=== PATIENT | male | born 1980 | race Caucasian/White ===

== ENCOUNTER 2018-07-20 10:36 | Inpatient (IN) | payer MEDICAID, OTHER ==
[~2018-07-20] VITALS: Ht 180.3 cm; Wt 135.1 kg
[2018-07-20] MEDS ORDERED: aspirin 81mg tab.chew PO ONE (10:50)
[2018-07-20] MEDS ORDERED: niCARDipine/sod cl 20mg/200ml 200 ML IV ONE (10:50)
[2018-07-20 11:03] LABS: BASOPHILS % (AUTO) 0.3 % (0-1); EOSINOPHILS # (AUTO) 0.1 X10'3 (0-0.9); HEMATOCRIT 49.7 % (42.0-52.0); HEMOGLOBIN 16.2 g/dl (14.0-17.9); LYMPHOCYTES # (AUTO) 1.3 X10'3 (1.1-4.8); LYMPHOCYTES % (AUTO) 15.1 % (21-51); MEAN CORPUSCULAR HGB CONC 32.7 % (33.0-36.5); MEAN CORPUSCULAR VOLUME 85.7 FL (78-98); MEAN PLATELET VOLUME 7.4 FL (7.4-10.4); MONOCYTES # (AUTO) 0.4 X10'3 (0-0.9); MONOCYTES % (AUTO) 4.4 % (2-12); NEUTROPHILS # (AUTO) 6.8 X10'3 (1.8-7.7); NEUTROPHILS % (AUTO) 79.2 % (42-75); PLATELET COUNT 343 X10'3 (140-440); RED BLOOD COUNT 5.79 X10'6 (4.70-6.10); RED CELL DISTRIBUTION WIDTH 15.4 % (11.5-14.5); WHITE BLOOD COUNT 8.6 X10'3 (4.5-11.0)
[2018-07-20 11:12] LABS: PARTIAL THROMBOPLASTIN TIME 27 SECONDS (22-32); PROTHROMBIN TIME 10.2 SECONDS (9.0-12.0)
[2018-07-20 11:25] LABS: ALANINE AMINOTRANSFERASE 32 U/L (12-78); ALBUMIN 3.9 G/DL (3.4-5.0); ALBUMIN/GLOBULIN RATIO 0.8 (1.1-1.5); ALKALINE PHOSPHATASE 121 IU/L (46-116); ANION GAP 9 (8-16); ASPARTATE AMINO TRANSFERASE 11 U/L (10-37); BILIRUBIN,TOTAL 0.6 MG/DL (0.1-1.0); BLOOD UREA NITROGEN 6 MG/DL (7-18); BUN/CREATININE RATIO 5.5 (5.4-32.0); CALCIUM 9.3 MG/DL (8.5-10.1); CHLORIDE 103 MMOL/L (99-107); CREATININE 1.09 MG/DL (0.60-1.10); GLUCOSE 126 MG/DL (70-104); SODIUM 137 MMOL/L (135-145); TOTAL CARBON DIOXIDE 25.2 MMOL/L (24-32); TOTAL PROTEIN 8.7 G/DL (6.4-8.2); eGFR 76 ML/MIN
[2018-07-20] MEDS ORDERED: NO HOME MEDS (11:53)
[2018-07-20] MEDS ORDERED: nitroGLYCERIN-Tridil 50MG/D5W 250 ML IV PRN (11:58)
[2018-07-20] MEDS ORDERED: mag hydrox/Alum hydrox/simeth 30ml oral suspension PO PRN (13:25)
[2018-07-20] MEDS ORDERED: potassium Cl 40MEQ/NS 500ml 500 ML IV PRN ×2 (13:25)
[2018-07-20] MEDS ORDERED: magnesium 1gm/100ml D5W IVPB 100 ML IV PRN (13:25)
[2018-07-20] MEDS ORDERED: ondansetron/PF 4mg/2ml inj IV PRN (13:25)
[2018-07-20] MEDS ORDERED: magnesium hydroxide 30ml (MOM) UD suspension PO PRN (13:25)
[2018-07-20] MEDS: sodium chloride 0.45% 1,000 ML IV SCH (13:25)
[2018-07-20] MEDS ORDERED: acetaminophen 325mg tablet PO PRN (13:25)
[2018-07-20] MEDS ORDERED: magnesium 4gm in 100ml NS 100 ML IV PRN (13:25)
[2018-07-20] MEDS ORDERED: magnesium Cl slow-release 64mg tablet PO PRN (13:25)
[2018-07-20] MEDS ORDERED: morphine 2 MG/ML inj. syringe IV PRN ×2 (13:25)
[2018-07-20] MEDS: K and/or MAG REPLACEMENT MC SCH (13:25)
[2018-07-20] MEDS ORDERED: bisacodyl 10mg suppository rectal RC PRN (13:25)
[2018-07-20] MEDS ORDERED: potassium Cl 20 mEq SR tablet PO PRN ×2 (13:25)
[2018-07-20] MEDS ORDERED: LORazepam 2 mg/ml vial IV PRN (13:30)
[2018-07-20] MEDS ORDERED: LORazepam 1 MG tablet PO PRN (13:30)
[2018-07-20] MEDS ORDERED: nitroGLYCERIN-Tridil 50MG/D5W 250 ML IV SCH (13:30)
[2018-07-20 14:40] LABS: ETHANOL < 0.010 GM/DL (0.0-0.010)
[2018-07-20] MEDS ORDERED: heparin 10,000 units/1 ML INJ IV PRN (15:40)
[2018-07-20] MEDS ORDERED: heparin 10,000 units/1 ML INJ IV ONE (15:40)
[2018-07-20] MEDS: metoprolol tartrate 12.5mg (1/2 tablet) PO SCH ×2 (17:28→20:00)
[2018-07-20 18:30] LABS: PROTHROMBIN TIME 10.5 SECONDS (9.0-12.0)
[2018-07-20 19:00] VITALS: BP 137/95
[2018-07-20] MEDS: tirofiban 5mg in NS 100mL 100 ML IV SCH ×2 (20:00→21:23)
[2018-07-20] MEDS: docusate sod 100mg capsule PO SCH (20:00)
[2018-07-20 21:00] VITALS: BP 138/87
[2018-07-20 23:00] VITALS: BP 145/95
[2018-07-21] VITALS (16 sets, daily range): BP systolic 122–180; BP diastolic 66–120
[2018-07-21 02:16] LABS: ALANINE AMINOTRANSFERASE 30 U/L (12-78); ALBUMIN 3.2 G/DL (3.4-5.0); ALBUMIN/GLOBULIN RATIO 0.8 (1.1-1.5); ALKALINE PHOSPHATASE 102 IU/L (46-116); ANION GAP 7 (8-16); ASPARTATE AMINO TRANSFERASE 32 U/L (10-37); BASOPHILS % (AUTO) 0.3 % (0-1); BILIRUBIN,TOTAL 0.6 MG/DL (0.1-1.0); BLOOD UREA NITROGEN 9 MG/DL (7-18); CALCIUM 8.5 MG/DL (8.5-10.1); CHLORIDE 104 MMOL/L (99-107); CHOL/HDL RATIO 4.3 (0.00-4.99); CHOLESTEROL 125 MG/DL (0-200); EOSINOPHILS # (AUTO) 0.2 X10'3 (0-0.9); EOSINOPHILS % (AUTO) 1.8 % (0-6); GLUCOSE 101 MG/DL (70-104); HDL CHOLESTEROL 29 MG/DL (35-60); HEMATOCRIT 44.2 % (42.0-52.0); HEMOGLOBIN 14.6 g/dl (14.0-17.9); LDL CHOLESTEROL 80 MG/DL (50-100); LYMPHOCYTES # (AUTO) 2.6 X10'3 (1.1-4.8); LYMPHOCYTES % (AUTO) 24.3 % (21-51); MEAN CORPUSCULAR HEMOGLOBIN 28.5 PG (27.0-31.0); MEAN CORPUSCULAR HGB CONC 33.1 % (33.0-36.5); MEAN CORPUSCULAR VOLUME 86.1 FL (78-98); MEAN PLATELET VOLUME 7.7 FL (7.4-10.4); MONOCYTES # (AUTO) 0.7 X10'3 (0-0.9); MONOCYTES % (AUTO) 6.1 % (2-12); NEUTROPHILS # (AUTO) 7.3 X10'3 (1.8-7.7); NEUTROPHILS % (AUTO) 67.5 % (42-75); PHOSPHORUS 3.5 MG/DL (2.3-4.5); PLATELET COUNT 315 X10'3 (140-440); POTASSIUM 3.8 MMOL/L (3.5-5.1); RED BLOOD COUNT 5.13 X10'6 (4.70-6.10); RED CELL DISTRIBUTION WIDTH 15.5 % (11.5-14.5); SODIUM 138 MMOL/L (135-145); TOTAL CARBON DIOXIDE 27.4 MMOL/L (24-32); TOTAL PROTEIN 7.1 G/DL (6.4-8.2); TRIGLYCERIDES 133 MG/DL (20-135); WHITE BLOOD COUNT 10.9 X10'3 (4.5-11.0); eGFR > 90 ML/MIN
[2018-07-21] MEDS: sodium chloride 0.45% 1,000 ML IV SCH (03:43)
[2018-07-21] MEDS: tirofiban 5mg in NS 100mL 100 ML IV SCH ×2 (03:54→08:01)
[2018-07-21] MEDS ORDERED: folic acid inj. 2 MG, thiamine inj. 100 MG, MVI, adult No.4 with vit. K 10 ML in dextro... IV SCH ×4 (08:00)
[2018-07-21] MEDS: K and/or MAG REPLACEMENT MC SCH (08:00)
[2018-07-21] MEDS: aspirin 81mg tablet.DR PO SCH (08:13)
[2018-07-21] MEDS: metoprolol tartrate 12.5mg (1/2 tablet) PO SCH (08:13)
[2018-07-21] MEDS: docusate sod 100mg capsule PO SCH ×2 (08:13→20:08)
[2018-07-21] MEDS ORDERED: atorvastatin 20mg tablet PO SCH ×3 (08:20→21:00)
[2018-07-21] MEDS: thiamine 100mg tablet PO SCH (08:26)
[2018-07-21] MEDS: multivitamins, therapeutics tablet PO SCH (08:26)
[2018-07-21] MEDS: folic acid 1mg tablet PO SCH (08:27)
[2018-07-21 10:09] LABS: CLARITY,URINE CLEAR (Clear); COLOR,URINE YELLOW (Yellow); GLUCOSE, URINE NEGATIVE (Neg); KETONES,URINE NEGATIVE (Neg); LEUKOCYTE ESTERASE ,URINE NEGATIVE (Neg); NITRITES, URINE NEGATIVE (Neg); OCCULT BLOOD,URINE NEGATIVE (Neg); PH,URINE 7.5 (4.8-8.0); PROTEIN,URINE NEGATIVE (Neg); UROBILINOGEN,URINE 0.2 E.U/dL (0.2-1.0)
[2018-07-21 10:10] LABS: UA COLLECTION TYPE CLN CATCH MIDSTREAM
[2018-07-21] MEDS ORDERED: lidocaine 1%/epinephrine 1:100,000 injection 50ml vial ONE (10:10)
[2018-07-21] MEDS ORDERED: iohexol 350MG/ML 100ml bottle IV ONE (10:10)
[2018-07-21] MEDS ORDERED: midazolam 2 mg/2 ml injection ONE (10:29)
[2018-07-21] MEDS ORDERED: fentaNYL/PF 50MCG/1 ML 2ML syringe ONE (10:29)
[2018-07-21] MEDS ORDERED: tirofiban 5mg in NS 100mL 100 ML IV ONE (10:34)
[2018-07-21 10:37] LABS: URINE AMPHETAMINE SCREEN NEGATIVE (Neg); URINE BARBITUATE SCREEN NEGATIVE (Neg); URINE BENZODIAZEPINES SCREEN NEGATIVE (Neg); URINE CANNABINOID SCREEN POSITIVE (Neg); URINE COCAINE SCREEN NEGATIVE (Neg); URINE METHADONE SCREEN NEGATIVE (Neg); URINE OPIATE SCREEN NEGATIVE (Neg); URINE PHENCYCLIDINE SCREEN NEGATIVE (Neg)
[2018-07-21] MEDS ORDERED: verapamil 2.5 mg/ml inj IV ONE (10:37)
[2018-07-21] MEDS ORDERED: nitroGLYCERIN-Tridil 50MG/D5W 250 ML IV ONE (10:37)
[2018-07-21] MEDS ORDERED: heparin 1,000unit/ml 10ml vial 10 ML ONE ×2 (10:37→10:47)
[2018-07-21] MEDS ORDERED: iohexol 350 MG/ML 50ML vial IV ONE (10:53)
[2018-07-21] MEDS ORDERED: ticagrelor 90mg tablet ONE (11:07)
[2018-07-21] MEDS ORDERED: proCHLORperazine 10 MG/2 ml inj IV PRN (11:45)
[2018-07-21] MEDS ORDERED: aspirin 81mg tab.chew PO ONE (11:45)
[2018-07-21] MEDS ORDERED: OXAZEpam 15mg capsule PO PRN (11:45)
[2018-07-21] MEDS ORDERED: lisinopril 5mg tablet PO SCH (12:10)
[2018-07-21] MEDS ORDERED: carvedilol 6.25mg tablet PO SCH (20:00)
[2018-07-21] MEDS: ticagrelor 90mg tablet PO SCH (20:08)
[2018-07-21] MEDS ORDERED: lisinopril 10 MG tablet PO SCH (21:00)
[2018-07-21] MEDS ORDERED: losartan 50mg tablet PO SCH (21:00)
[2018-07-21] MEDS ORDERED: hydrALAZINE 20mg/ml inj. IV PRN (23:45)
[2018-07-22 03:00] VITALS: BP 153/92
[2018-07-22 07:00] VITALS: BP 146/87
[2018-07-22 07:10] LABS: BASOPHILS % (AUTO) 0.5 % (0-1); EOSINOPHILS # (AUTO) 0.1 X10'3 (0-0.9); EOSINOPHILS % (AUTO) 1.3 % (0-6); HEMATOCRIT 46.9 % (42.0-52.0); HEMOGLOBIN 14.8 g/dl (14.0-17.9); LYMPHOCYTES # (AUTO) 1.8 X10'3 (1.1-4.8); MEAN CORPUSCULAR HEMOGLOBIN 26.5 PG (27.0-31.0); MEAN CORPUSCULAR HGB CONC 31.5 % (33.0-36.5); MEAN CORPUSCULAR VOLUME 84.1 FL (78-98); MEAN PLATELET VOLUME 7.4 FL (7.4-10.4); MONOCYTES # (AUTO) 0.5 X10'3 (0-0.9); MONOCYTES % (AUTO) 5.3 % (2-12); NEUTROPHILS # (AUTO) 7.2 X10'3 (1.8-7.7); NEUTROPHILS % (AUTO) 73.9 % (42-75); PLATELET COUNT 329 X10'3 (140-440); RED BLOOD COUNT 5.58 X10'6 (4.70-6.10); WHITE BLOOD COUNT 9.7 X10'3 (4.5-11.0)
[2018-07-22] MEDS: aspirin 81mg tablet.DR PO SCH (07:31)
[2018-07-22] MEDS: ticagrelor 90mg tablet PO SCH (07:31)
[2018-07-22] MEDS: multivitamins, therapeutics tablet PO SCH (07:31)
[2018-07-22] MEDS: folic acid 1mg tablet PO SCH (07:31)
[2018-07-22] MEDS: thiamine 100mg tablet PO SCH (07:32)
[2018-07-22] MEDS: docusate sod 100mg capsule PO SCH (07:40)
[2018-07-22 07:49] LABS: ALANINE AMINOTRANSFERASE 33 U/L (12-78); ALBUMIN 3.4 G/DL (3.4-5.0); ALBUMIN/GLOBULIN RATIO 0.8 (1.1-1.5); ALKALINE PHOSPHATASE 115 IU/L (46-116); ANION GAP 11 (8-16); ASPARTATE AMINO TRANSFERASE 21 U/L (10-37); BILIRUBIN,TOTAL 0.8 MG/DL (0.1-1.0); BLOOD UREA NITROGEN 6 MG/DL (7-18); BUN/CREATININE RATIO 7.1 (5.4-32.0); CALCIUM 8.6 MG/DL (8.5-10.1); CHLORIDE 102 MMOL/L (99-107); CREATININE 0.84 MG/DL (0.60-1.10); GLUCOSE 93 MG/DL (70-104); MAGNESIUM 1.9 MG/DL (1.5-2.4); POTASSIUM 3.6 MMOL/L (3.5-5.1); SODIUM 136 MMOL/L (135-145); TOTAL PROTEIN 7.7 G/DL (6.4-8.2); eGFR > 90 ML/MIN
[2018-07-22] MEDS ORDERED: lisinopril 10 MG tablet PO SCH (08:00)
[2018-07-22] MEDS: K and/or MAG REPLACEMENT MC SCH (08:00)
[2018-07-22] MEDS ORDERED: carVEDilol 12.5mg tablet PO SCH (08:00)
[2018-07-22] MEDS ORDERED: TICA90TA PO (08:50)
[2018-07-22] MEDS ORDERED: ATOR20TA66 PO (08:50)
[2018-07-22] MEDS ORDERED: CARV-50 PO (08:50)
[2018-07-22] MEDS ORDERED: ASPI-1071 PO (08:50)
[2018-07-22] MEDS ORDERED: LISI10TA4 PO (08:50)
== END 2018-07-22 12:15 | disposition home or self-care (01) | DRG 174 ==
LOC: ER 10:36 → ED HOLD 13:25 → EDBEDREQ 16:25 → PCU 3S 18:10
PROVIDERS: ADMIT Internal Medicine; ATTEND Internal Medicine
PROC: 4A023N7 Measurement of Cardiac Sampling and Pressure, Left Heart, Percutaneous Approach (ICD-10-PCS; principal; 2018-07-21)
PROC: 027034Z Dilation of Coronary Artery, One Artery with Drug-eluting Intraluminal Device, Percutaneous Approach (ICD-10-PCS; 2018-07-21)
PROC: B2111ZZ Fluoroscopy of Multiple Coronary Arteries using Low Osmolar Contrast (ICD-10-PCS; 2018-07-21)
PROC: B2151ZZ Fluoroscopy of Left Heart using Low Osmolar Contrast (ICD-10-PCS; 2018-07-21)
DX: I21.4 Non-ST elevation (NSTEMI) myocardial infarction (principal); I50.21 Acute systolic (congestive) heart failure; I16.1 Hypertensive emergency; E66.01 Morbid (severe) obesity due to excess calories; I11.0 Hypertensive heart disease with heart failure; F10.20 Alcohol dependence, uncomplicated; F12.90 Cannabis use, unspecified, uncomplicated; F17.210 Nicotine dependence, cigarettes, uncomplicated; Z71.6 Tobacco abuse counseling; Z68.41 Body mass index [BMI] 40.0-44.9, adult; Z71.89 Other specified counseling; Z79.82 Long term (current) use of aspirin
CPT/HCPCS: 36415; 70450; 71045; 80053; 80061; 80305; 80320; 81003; 83735; 83880; 84100; 84439; 84443; 84484; 85025; 85610; 85730; 87070; 93005; 93306; 93458; 93880; 96365; 96375; 99152; 99153; 99285; A4620; A6257; C1725; C1769; C1874; C9600; J0360; J1644; J2250; J3010; J3246; J3411; J3490; J7030; J7060; Q9967